=== PATIENT | female | born 1960 | race Hispanic/Latino ===

== ENCOUNTER 2019-02-08 05:30 | Day surgery (SDC) | payer MEDICAID ==
[~2019-02-08] VITALS: Ht 154.9 cm; Wt 71.7 kg
[~2019-02-08 05:30] MED LIST: ESOM40CA PO; HYDR-4064 PO; IRON150C5 PO; SIMV10TA97 PO; TRAZ150T79 PO
[2019-02-08] MEDS ORDERED: SODIUM CHLORIDE 0.9% 1000ML 1,000 ML IV ONE (05:47)
[2019-02-08 06:00] VITALS: BP 139/85
[2019-02-08] MEDS ORDERED: ESOM40CA54 PO (06:14)
[2019-02-08] MEDS ORDERED: PROM25TA7 PO (06:14)
[2019-02-08] MEDS ORDERED: INFL100I INJ (06:14)
[2019-02-08] MEDS ORDERED: DOCU100T PO (06:14)
[2019-02-08] MEDS ORDERED: LIDOCAINE HCL-MPF 2% 5ML VIAL ONE (07:00)
[2019-02-08] MEDS ORDERED: PROPOFOL 10 MG/ML 20ML VIAL IV ONE (07:00)
[2019-02-08] MEDS ORDERED: PHENYLEPHRINE HCL 10 MG/ML 1ML VIAL IV ONE (07:22)
[2019-02-08] MEDS ORDERED: SODIUM CHLORIDE 0.9% 10 ML VIAL ONE (07:22)
[2019-02-08 07:35] VITALS: BP 80/33
[2019-02-08 07:36] VITALS: BP 92/60
[2019-02-08 07:40] VITALS: BP 100/65
[2019-02-08 07:45] VITALS: BP 102/78
[2019-02-08 07:50] VITALS: BP 107/75
== END 2019-02-08 07:59 | disposition home or self-care (01) ==
LOC: DAH 05:30 → ENDO 05:30
PROVIDERS: ATTEND Internal Medicine
DX: K56.699 Other intestinal obstruction unspecified as to partial versus complete obstruction (principal); K51.90 Ulcerative colitis, unspecified, without complications; F41.9 Anxiety disorder, unspecified; E78.5 Hyperlipidemia, unspecified; F32.9 Major depressive disorder, single episode, unspecified; K21.0 Gastro-esophageal reflux disease with esophagitis; Z98.0 Intestinal bypass and anastomosis status; Z79.899 Other long term (current) drug therapy; Z90.710 Acquired absence of both cervix and uterus; Z82.49 Family history of ischemic heart disease and other diseases of the circulatory system; Z83.3 Family history of diabetes mellitus
CPT/HCPCS: 45380; 45386; 88305; A4215 ×2; A4221; A4222; A4223; A4606; A4615; A4663; J2370; J2704; J3490; J7030

== ENCOUNTER 2021-10-11 09:23 | Emergency (ER) | payer MEDICAID ==
[~2021-10-11] VITALS: Ht 154.9 cm; Wt 73.9 kg
[~2021-10-11 09:23] MED LIST changes: +DOCU100T PO; -ESOM40CA PO; +ESOM40CA54 PO; +INFL100I INJ; +PROM25TA7 PO
[2021-10-11 09:49] LABS: BASOPHILS % (AUTO) 0.9 % (0.0-5.0); EOSINOPHILS % (AUTO) 1.6 % (0.0-8.0); LYMPHOCYTES % (AUTO) 45.3 % (21.0-51.0); MEAN CORPUSCULAR HEMOGLOBIN 26.2 pg (27.0-33.0); MEAN CORPUSCULAR HGB CONC 31.2 g/dL (32.0-36.0); MEAN CORPUSCULAR VOLUME 84.1 fL (79-99); MONOCYTES % (AUTO) 6.5 % (3.0-13.0); NEUTROPHILS % (AUTO) 45.5 % (40.0-77.0); PLATELET COUNT (AUTO) 279 K/uL (130-400); RED BLOOD CELL COUNT(AUTO) 5.11 MIL/uL (4.00-5.50); RED CELL DISTRIBUTION WIDTH 13.5 % (11.0-15.5); WHITE BLOOD COUNT (AUTO) 5.5 K/uL (4.8-10.8)
[2021-10-11 09:58] LABS: CREATININE 1.1 mg/dL (0.5-1.5); POTASSIUM 3.8 mmol/L (3.5-5.1)
[2021-10-11 09:59] LABS: INR 0.93 (0.85-1.15)
[2021-10-11 10:00] LABS: PARTIAL THROMBOPLASTIN TIME 25.4 SEC (26.3-35.5)
[2021-10-11 10:04] LABS: ALBUMIN 3.8 g/dL (3.5-5.0); TOTAL PROTEIN, SERUM 7.4 g/dL (6.0-8.3)
[2021-10-11 10:28] VITALS: BP 145/73
[2021-10-11] MEDS ORDERED: CETI10TA57 PO (11:27)
== END 2021-10-11 11:43 | disposition home or self-care (01) ==
LOC: EDH 09:23
DX: R04.0 Epistaxis (principal); J30.2 Other seasonal allergic rhinitis; Z79.899 Other long term (current) drug therapy
CPT/HCPCS: 36415; 80053; 85025; 85610; 85730

== ENCOUNTER 2023-02-04 07:47 | Day surgery (SDC) | payer MEDICAID ==
[~2023-02-04] VITALS: Ht 154.9 cm; Wt 75.7 kg
[2023-02-04] VITALS (11 sets, daily range): BP systolic 106–152; BP diastolic 51–81; PULSE 61–83; RESP 14–20
[~2023-02-04 07:47] MED LIST changes: +0.9%NACL 1000ML 1,000 ML IV ONE; +BUTA1CAP53 PO; +CHOL100046 PO; +COLLAGEN PO; -ESOM40CA54 PO; +FAMO40TA7 PO; -HYDR-4064 PO; +HYDR12.54 PO; -INFL100I INJ; -IRON150C5 PO; +OMEGA PO; +OMEP40CA21 PO; +PROBIOTIC PO; -PROM25TA7 PO; +SIMV-46 PO; -SIMV10TA97 PO; -TRAZ150T79 PO; +VITA-395 PO
[2023-02-04] MEDS ORDERED: CETI10TA57 PO (08:23)
[2023-02-04] MEDS ORDERED: ONDA4TAB10 PO (08:23)
[2023-02-04] MEDS ORDERED: PROPOFOL 10 MG/ML 20ML VIAL IV ONE (10:22)
== END 2023-02-04 11:35 | disposition home or self-care (01) ==
LOC: DAH 07:47 → ENDO 07:47
PROVIDERS: ATTEND Internal Medicine Gastroenterology
DX: R13.10 Dysphagia, unspecified (principal); K21.9 Gastro-esophageal reflux disease without esophagitis; K29.50 Unspecified chronic gastritis without bleeding; K50.90 Crohn's disease, unspecified, without complications; K56.600 Partial intestinal obstruction, unspecified as to cause; K59.00 Constipation, unspecified; K44.9 Diaphragmatic hernia without obstruction or gangrene; E55.9 Vitamin D deficiency, unspecified; F41.9 Anxiety disorder, unspecified; F32.A Depression, unspecified; M81.0 Age-related osteoporosis without current pathological fracture; E78.5 Hyperlipidemia, unspecified; Z86.010 Personal history of colon polyps; Z90.710 Acquired absence of both cervix and uterus
CPT/HCPCS: 43239; 43248; J7030 ×2; J3490; A4620; A4215 ×2; A4223; A7002; A4222; A4221; A4663; A4216; A4606; J2704

== ENCOUNTER 2023-10-04 17:30 | Emergency (ER) | payer MEDICAID ==
[~2023-10-04] VITALS: Ht 154.9 cm; Wt 69.4 kg
[~2023-10-04 17:30] MED LIST changes: -0.9%NACL 1000ML 1,000 ML IV ONE; +CETI10TA57 PO; -HYDR12.54 PO; +ONDA-243 PO
[2023-10-04] MEDS ORDERED: IBUP-2077 PO (18:47)
[2023-10-04 20:35] VITALS: BP 132/68; PULSE 68; RESP 16; O2SAT 99
[2023-10-04] MEDS: HYDROCODONE/ACETAMINOPHEN 5/325 MG TAB PO ONE (20:37)
== END 2023-10-04 20:41 | disposition home or self-care (01) ==
LOC: EDH 17:30
DX: K08.89 Other specified disorders of teeth and supporting structures (principal); D64.9 Anemia, unspecified; K50.90 Crohn's disease, unspecified, without complications; Z79.899 Other long term (current) drug therapy; Z98.890 Other specified postprocedural states

== ENCOUNTER 2024-05-01 22:34 | Emergency (ER) | payer MEDICAID ==
[~2024-05-01] VITALS: Ht 154.9 cm; Wt 70.8 kg
[~2024-05-01 22:34] MED LIST changes: +IBUP-2077 PO
--- NOTE | 2024-05-01 23:42 | HMCIMG ---
CT HEAD/BRAIN W/O CONTRAST HISTORY: Headaches COMPARISON: None TECHNIQUE: Multiple sequential axial images of the head were obtained from the base of the skull through vertex. Patient was not given contrast through intravenous route. FINDINGS: The ventricles and extraventricular CSF spaces are nondilated for patient's age. There is no midline shift, mass effect or herniation. No acute intracranial bleed is seen. Visualized portion of the paranasal sinuses are grossly within normal limits. IMPRESSION: 1. No acute intracranial bleed is seen. CT was performed with one or more following dose reduction techniques: automated exposure control, adjustment of the mA and kv according to patient's size, or use of a iterative reconstruction technique.
[2024-05-02 00:10] LABS: BASOPHILS # (AUTO) 0.06 K/uL (0.00-0.20); BASOPHILS % (AUTO) 0.7 % (0.0-5.0); EOSINOPHILS # (AUTO) 0.16 K/uL (0.00-0.70); EOSINOPHILS % (AUTO) 1.9 % (0.0-8.0); HEMATOCRIT 40.5 % (36-48); IMMATURE GRANULOCYTE ABSOLUTE 0.01 K/uL (0-1); LYMPHOCYTES # (AUTO) 3.2 K/uL (1.0-4.8); LYMPHOCYTES % (AUTO) 38.4 % (21.0-51.0); MEAN CORPUSCULAR HEMOGLOBIN 25.4 pg (27.0-33.0); MEAN CORPUSCULAR HGB CONC 31.4 g/dL (32.0-36.0); MONOCYTES # (AUTO) 0.5 K/uL (0.1-1.0); MONOCYTES % (AUTO) 5.5 % (3.0-13.0); NEUTROPHILS # (AUTO) 4.5 K/uL (1.8-7.7); NEUTROPHILS % (AUTO) 53.4 % (40.0-77.0); PLATELET COUNT (AUTO) 325 K/uL (130-400); RED CELL DISTRIBUTION WIDTH 14.3 % (11.0-15.5); WHITE BLOOD COUNT (AUTO) 8.4 K/uL (4.8-10.8)
[2024-05-02 00:31] LABS: CREATININE 0.9 mg/dL (0.5-1.0); POTASSIUM 3.1 mmol/L (3.5-5.1)
[2024-05-02] MEDS: metoCLOPRAmide 10 MG/2 ML VIAL IVP ONE (01:29)
[2024-05-02] MEDS: DiphenhydrAMINE HCL 50 MG/ML VIAL IV ONE (01:30)
[2024-05-02] MEDS: ketOROlac 15MG/ML VIAL (15MG/ML) IV ONE (01:30)
[2024-05-02] MEDS: 0.9%NACL 1000ML 1,000 ML IV ONE (01:31)
[2024-05-02] MEDS: acetaMINOPHEN 500 MG TABLET PO ONE (01:31)
[2024-05-02 02:10] VITALS: BP 154/80; PULSE 16; RESP 18; TEMP 98.4; O2SAT 98
--- NOTE | 2024-05-02 02:26 | ERN ---
ED Note History of Present Illness Stated Complaint: HEADACHES Chief Complaint: Headache Time Seen by MD: 23:13 Time Seen by Midlevel: 23:13 Dictation: The patient is a 64-year-old with a history of Crohn's disease who presents to the emergency department with frontal headache onset 3-4 days ago. Patient denies any dizziness, denies any nausea or vomiting, denies any trauma. Patient reports that movement makes pain worse. Allergies: Coded Allergies: No Known Drug Allergies (Unverified Allergy, Unknown, 11/27/13) Home Meds Active Scripts Ibuprofen (Ibuprofen 800 mg Tab) 800 Mg Tab, 800 MG PO Q8H PRN for fever or pain, #20 TAB 0 Refills Prov:SPENSER AYALA MD 10/04/23 Reported Medications Cetirizine HCl (Cetirizine HCl) 10 Mg Tablet, 10 MG PO DAILY, TAB 02/04/23 Ondansetron (Ondansetron Odt) 4 Mg Tab.rapdis, 4 MG PO AD, TAB 02/04/23 Simvastatin (Simvastatin) 40 Mg Tablet, 40 MG PO HS, TAB 02/03/23 Famotidine (Famotidine) 40 Mg Tablet, 40 MG PO DAILY, TAB 02/03/23 Omeprazole (Omeprazole) 40 Mg Capsule.dr, 40 MG PO DAILY, CAP 02/03/23 [Probiotic +50] No Conflict Check, 1 CAP PO DAILY 02/03/23 Vitamin E (Dl,Tocopheryl Acet) (Vitamin E) 180 Mg (400 Unit) Capsule, 180 MG PO DAILY, CAP 02/03/23 Cholecalciferol (Vitamin D3) (Vitamin D3) 25 Mcg (1000 Unit) Capsule, 25 MCG PO DAILY, CAP 02/03/23 [Presho] No Conflict Check, 500 MG PO DAILY 02/03/23 [Collagen] No Conflict Check, 2.5 G PO DAILY 02/03/23 Butalb/Acetaminophen/Caffeine (Vsdqwt-Giiudbgy-Cxif 50-300-40) 50 Mg-300 Mg-40 Mg Capsule, 1 EACH PO [id number] PRN for HEADACHE, CAP 02/03/23 Docusate Sodium (Docusate Sodium) 100 Mg Tablet, 100 MG PO DAILY, TAB 02/08/19 Past Medical History Past Medical History: Hypertension, Other Additional Past Medical Hx: HX OF CROHN'S DISEASE Surgical History: Hysterectomy, Other Surgical History Other: HX OF COLON RESECTION History: Not Applicable RN Note Reviewed/Agreed w/PFSH: Yes Review of System Dictation Constitutional: Negative for fever,chills, and weight loss Eyes: Negative for injury, pain,redness, and discharge ENT: Negative for injury,pain or swelling Cardiovascular: Negative for chest pain, palpitations, and edema Respiratory: Negative for shortness of breath, cough, and wheezing, Abdomen/GI: Negative for abdominal pain, nausea, vomiting, diarrhea, and constipation Back: Negative for injury and pain : Negative for injury, bleeding and discharge MS/Extremity: Negative for injury and deformity Skin: Negative for rash, and discoloration Neuro: Negative for weakness, numbness, tingling, and seizure positive for headache, Psych: Negative for suicide ideation, homicidal ideation, and hallucinations Initial Vital Sign VS Vital Signs Date Time Temp Pulse Resp B/P (MAP) Pulse Ox O2 Delivery O2 Flow Rate FiO2 05/01/24 23:00 98.1 75 20 192/93 97 Room Air 05/02/24 02:10 0 21 Physical Exam Dictation Vital Signs reviewed General Appearance: Alert, oriented x 3, no acute distress, well developed, nourished. Head and Face: non-traumatic. Eyes: PERRL, pink conjunctivas, eyelid no trauma, anterior chamber with arcus senilis. Ears: Pinnas intact and no signs of trauma or erythema ear canals clear and no discharge TM no erythema Nose: No discharge, no bleeding. Oropharynx: Mouth normal, tongue pink. pharynx clear,no erythema, tonsils no exudates, no abscesses noted, mucous membrane moist Neck: Supple, non-tender, no thyromegaly, no masses, no JVD, no bruits Breast:Deferred Chest:No tenderness, no crepitus, no paradoxical movement, no retractions Lungs:Clear, well-ventilated, symmetric, no rales, no wheezing, no rhonchi, no stridor, good breath sounds bilaterally Heart: Regular rate, regular rhythm, no murmur, no gallops Vascular: no peripheral edema, Abdomen: Soft, positive bowel sounds, nondistended, no guarding, nontender, no rebound, no masses no hepatomegaly, no splenomegaly, no Claros's sign, no hernias. Rectal: Deferred Genital: Deferred Neurological: Normal speech, motor function intact, sensory function intact , upper extremities equal and strength, lower extremities equal and strength Musculoskeletal: Neck nontender, full range of motion, back nontender, full range of motion, Extremities: nontender, full range of motion Skin: Color pink, dry, no turgor, no rash, no lacerations, no abrasions, no contusions. Lymphatic: Deferred Results (Laboratory/Radiology) Laboratory/Radiology Laboratory Tests Test 05/01/24 23:42 White Blood Count 8.4 K/uL (4.8-10.8) Red Blood Count 5.00 MIL/uL (4.00-5.50) Hemoglobin 12.7 g/dL (12.0-16.0) Hematocrit 40.5 % (36-48) Mean Corpuscular Volume 81.0 fL (79-99) Mean Corpuscular Hemoglobin 25.4 pg (27.0-33.0) L Mean Corpuscular Hemoglobin Concent 31.4 g/dL (32.0-36.0) L Red Cell Distribution Width 14.3 % (11.0-15.5) Platelet Count 325 K/uL (130-400) Mean Platelet Volume 11.0 fL (7.5-10.5) H Immature Granulocyte % (Auto) 0.1 % (0-1) Neutrophils (%) (Auto) 53.4 % (40.0-77.0) Lymphocytes (%) (Auto) 38.4 % (21.0-51.0) Monocytes (%) (Auto) 5.5 % (3.0-13.0) Eosinophils (%) (Auto) 1.9 % (0.0-8.0) Basophils (%) (Auto) 0.7 % (0.0-5.0) Neutrophils # (Auto) 4.5 K/uL (1.8-7.7) Lymphocytes # (Auto) 3.2 K/uL (1.0-4.8) Monocytes # (Auto) 0.5 K/uL (0.1-1.0) Eosinophils # (Auto) 0.16 K/uL (0.00-0.70) Basophils # (Auto) 0.06 K/uL (0.00-0.20) Absolute Immature Granulocyte (auto 0.01 K/uL (0-1) Nucleated Red Blood Cells 0.0 % (0.0-0.19) Sodium Level 141 mmol/L (136-145) Potassium Level 3.1 mmol/L (3.5-5.1) L Chloride Level 105 mmol/L (101-111) Carbon Dioxide Level 28 mmol/L (21-32) Blood Urea Nitrogen 20 mg/dL (7-18) H Creatinine 0.9 mg/dL (0.5-1.0) Glomerular Filtration Rate Calc 72 mL/min (>90) Random Glucose 143 mg/dL (70-105) H Total Calcium 9.9 mg/dL (8.5-10.1) REASON: headache ORDERING PHYSICIAN: KIMBERLY AYALA PROCEDURE: HEAD WO - CT HEAD/BRAIN W/O CONTRAST CT HEAD/BRAIN W/O CONTRAST HISTORY: Headaches COMPARISON: None TECHNIQUE: Multiple sequential axial images of the head were obtained from the base of the skull through vertex. Patient was not given contrast through intravenous route. FINDINGS: The ventricles and extraventricular CSF spaces are nondilated for patient's age. There is no midline shift, mass effect or herniation. No acute intracranial bleed is seen. Visualized portion of the paranasal sinuses are grossly within normal limits. IMPRESSION: 1. No acute intracranial bleed is seen. CT was performed with one or more following dose reduction techniques: automated exposure control, adjustment of the mA and kv according to patient's size, or use of a iterative reconstruction technique. Labs Reviewed?: Yes ED Course ED Course Orders Procedure Category Date Status Time Cbc With Differential LAB 05/01/24 Complete 23:18 Basic Metabolic Panel LAB 05/01/24 Complete 23:18 Ct Head/Brain W/O CT 05/01/24 Resulted Contrast 23:18 Acetaminophen 500mg PHA 05/01/24 Complete Tab (Tylenol 500mg T 23:30 0.9%Nacl 1000ml (Ns PHA 05/01/24 Complete 1000ml) 23:30 Metoclopramide 10 PHA 05/01/24 Complete Mg/2 Ml Vial (Reglan 1 23:30 Diphenhydramine Hcl PHA 05/01/24 Complete (Benadryl Inj) 23:30 Ketorolac PHA 05/02/24 Complete Tromethamine 15mg/Ml 01:30 Current Medications Medications (Trade) Dose Ordered Sig/Nader Route PRN Reason Start Time Stop Time Status Last Admin Dose Admin Acetaminophen (TYLenol 500MG TAB) 1,000 mg ONCE ONCE PO 05/01/24 23:30 05/01/24 23:31 DC 05/02/24 01:31 Diphenhydramine HCl (BENAdryl INJ) 25 mg ONCE ONCE IV 05/01/24 23:30 05/01/24 23:31 DC 05/02/24 01:30 Ketorolac Tromethamine (toRADol) 15 mg ONCE ONCE IV 05/02/24 01:30 05/02/24 01:31 DC 05/02/24 01:30 Metoclopramide HCl (regLAN 10MG IV) 10 mg ONCE ONCE IVP 05/01/24 23:30 05/01/24 23:31 DC 05/02/24 01:29 Sodium Chloride 1,000 ml @ 0 mls/hr ONCE ONCE IV 05/01/24 23:30 05/01/24 23:31 DC 05/02/24 01:31 Vital Signs Date Time Temp Pulse Resp B/P (MAP) Pulse Ox O2 Delivery O2 Flow Rate FiO2 05/02/24 02:10 98.4 16 18 154/80 98 Room Air* 0 21 05/01/24 23:00 98.1 75 20 192/93 97 Room Air Medical Decision Making MDM The patient is a 64-year-old with a history of Crohn's disease who presents to the emergency department with frontal headache onset 3-4 days ago. Patient denies any dizziness, denies any nausea or vomiting, denies any trauma. Patient reports that movement makes pain worse. CBC showed no leukocytosis, no anemia, chemistry showed mild hypokalemia, CT abdomen showed no acute pathology. Patient reports improving in pain. Continues neurologically intact. We will be discharged to follow up with PCP. Differential diagnosis: Intracerebral hemorrhage, dehydration, tension headache Need for hospitalization: Patient does not meet criteria for hospitalization. There are no social concerns with this patient. DX & DISP Disposition: Discharge Departure Impression: Primary Impression: Headache Additional Impression: Hypokalemia Condition: Stable Additional Instructions: Please follow up with your primary doctor in 1-2 days. If symptoms worsen please return to ER. FOLLOW-UP WITH PRIMARY CARE PROVIDER IN 1 TO 2 DAYS. TAKE MEDICATIONS DIRECTED HERE IN THE EMERGENCY ROOM. OKAY TO CONTINUE HOME MEDICATIONS UNLESS OTHERWISE DISCUSSED DURING YOUR VISIT IN THE EMERGENCY ROOM TODAY. RETURN TO YOUR NEAREST EMERGENCY ROOM IF SYMPTOMS WORSEN OR IF THERE IS NO IMPROVEMENT. CALL 911 IF YOU NEED IMMEDIATE ASSISTANCE. TAKE TYLENOL OR MOTRIN [id number] NEEDED AND IF NO CONTRAINDICATIONS ARE PRESENT. INCREASE ORAL HYDRATION. A WOUND CULTURE OR URINE CULTURE WAS ORDERED HERE IN THE EMERGENCY ROOM DEPARTMENT PLEASE FOLLOW-UP WITH PRIMARY CARE PROVIDER AND ADVISE THEM TO GET REPEAT PORTS FROM OUR FACILITY. IF YOU HAD ANY DEBORA WRAP/SPLINTS THAT WERE APPLIED HERE, PLEASE DO NOT REMOVE THEM UNTIL YOU SEE YOUR PRIMARY CARE OR SPECIALTY. Referrals: TIM DISLA DO (PCP) Time of Disposition: 02:25 I have reviewed the case, and I agree with, Diagnosis and Plan KIMBERLY AYALA May 02, 2024 02:26
[2024-05-02] MEDS: PoTASSium BIcarbonate/CIT AC 25 MEQ TABLET.EFF PO ONE (02:33)
== END 2024-05-02 02:52 | disposition home or self-care (01) ==
LOC: EDH 22:34
DX: R51.9 Headache, unspecified (principal); E87.6 Hypokalemia; I10 Essential (primary) hypertension; Z79.899 Other long term (current) drug therapy; Z90.49 Acquired absence of other specified parts of digestive tract; Z90.710 Acquired absence of both cervix and uterus
CPT/HCPCS: 99285; 70450; 80048; 85025; 36415; 96374; 96375; J1885; J1200; J7030; J2765

== ENCOUNTER 2024-09-22 18:19 | Emergency (ER) | payer MEDICAID ==
[~2024-09-22] VITALS: Ht 154.9 cm; Wt 70.8 kg
[2024-09-22 19:01] LABS: IMMATURE GRANULOCYTE ABSOLUTE 0.01 K/uL (0-1); NUCLEATED RED BLOOD CELLS 0.0 % (0.0-0.19); PLATELET COUNT (AUTO) 283 K/uL (130-400); RED BLOOD CELL COUNT(AUTO) 5.19 MIL/uL (4.00-5.50); RED CELL DISTRIBUTION WIDTH 19.9 % (11.0-15.5); WHITE BLOOD COUNT (AUTO) 6.3 K/uL (4.8-10.8)
--- NOTE | 2024-09-22 19:07 | ERN ---
General Chief Complaint: Multiple Complaints Stated Complaint: SOB W/ EXERTION Time Seen by MD: 18:26 Source: patient History of Present Illness Initial Comments 64-year-old female whose only past medical history is hypertension comes in with a week long history of dyspnea on exertion and lightheadedness as well as a feeling of weakness shortness of breath and difficulty swallowing. The lightheadedness occurs when she is walking. The difficulty in swallowing occurs at rest when she feels like she has to consciously swallow her saliva as it tends to accumulate in the back of her mouth. She can drink water but she needs to drink it slowly she can eat solid foods. In addition patient feels like she has some shortness of breath as well. No chest pain Allergies: Coded Allergies: No Known Drug Allergies (Unverified Allergy, Unknown, 11/27/13) Home Meds Active Scripts Ibuprofen (Ibuprofen 800 mg Tab) 800 Mg Tab, 800 MG PO Q8H PRN for fever or shay n, #20 TAB 0 Refills Prov:SPENSER AYALA MD 10/04/23 Reported Medications Cetirizine HCl (Cetirizine HCl) 10 Mg Tablet, 10 MG PO DAILY, TAB 02/04/23 Ondansetron (Ondansetron Odt) 4 Mg Tab.rapdis, 4 MG PO AD, TAB 02/04/23 Simvastatin (Simvastatin) 40 Mg Tablet, 40 MG PO HS, TAB 02/03/23 Famotidine (Famotidine) 40 Mg Tablet, 40 MG PO DAILY, TAB 02/03/23 Omeprazole (Omeprazole) 40 Mg Capsule.dr, 40 MG PO DAILY, CAP 02/03/23 [Probiotic +50] No Conflict Check, 1 CAP PO DAILY 02/03/23 Vitamin E (Dl,Tocopheryl Acet) (Vitamin E) 180 Mg (400 Unit) Capsule, 180 MG PO DAILY, CAP 02/03/23 Cholecalciferol (Vitamin D3) (Vitamin D3) 25 Mcg (1000 Unit) Capsule, 25 MCG PO DAILY, CAP 02/03/23 [[place]] No Conflict Check, 500 MG PO DAILY 02/03/23 [Collagen] No Conflict Check, 2.5 G PO DAILY 02/03/23 Butalb/Acetaminophen/Caffeine (Ndxvxf-Rytdfbqc-Kcdi 50-300-40) 50 Mg-300 Mg-40 Mg Capsule, 1 EACH PO [id number] PRN for HEADACHE, CAP 02/03/23 Docusate Sodium (Docusate Sodium) 100 Mg Tablet, 100 MG PO DAILY, TAB 02/08/19 Past Medical History Past Medical History: Hypertension, Other Medical History Other: HX OF CROHN'S DISEASE Past Surgical History: Hysterectomy, Other Surgical History Other: HX OF COLON RESECTION Female( History) History: Not Applicable Constitutional: (-) chills, (-) diaphoresis, (-) fever, (-) malaise, (-) weakness, (-) other documentation EENTM: (-) eye pain, (-) blurred vision, (-) tearing, (-) double vision, (-) ear pain, (-) ear discharge, (-) nose pain, (-) nose congestion, (-) throat pain, (-) Throat swelling, (-) mouth pain, (-) tooth pain, (-) mouth swelling, (-) other documentation Respiratory: (-) cough, (-) orthopnea, (-) short of breath, (-) stridor, (-) wheezing, (-) other documentation Cardiovascular: (-) chest pain, (-) edema, (-) palpitations, (-) syncope, (-) dyspnea on exertion, (-) other documentation Gastrointestinal/Abdominal: (-) nausea, (-) vomiting, (-) diarrhea, (-) abdominal pain, (-) abdominal distention, (-) constipation, (-) rectal bleeding, (-) dark stool/melena, (-) other documentation Genitourinary: (-) vaginal discharge, (-) vaginal bleeding, (-) dysuria, (-) frequency, (-) hematuria, (-) pain, (-) other documentation Musculoskeletal: (-) Neck pain, (-) back pain, (-) Flank Pain, (-) joint pain, (-) joint swelling, (-) muscle pain, (-) muscle stiffness, (-) gout, (-) other documentation Skin: (-) laceration, (-) contusion, (-) abrasion, (-) abscess, (-) rash, (-) change in color, (-) change in hair, (-) change in nails, (-) diaphoresis, (-) dryness, (-) other documentation Physical Exam General Appearance: (+) no apparent distress Orientation: (+) alert Head/Face Trauma: No Eye: bilateral eye normal inspection, bilateral eye PERRL, bilateral eye EOMI Ear, Nose, Throat: (+) hearing grossly normal, (+) normal ENT inspection, (+) moist mucous membraine Neck: (+) normal inspection, (+) supple, (+) full range of motion, (+) no JVD Respiratory: (+) chest non-tender, (+) lungs clear, (+) well ventilated Heart: (+) regular, (+) no gallop Vascular: (+) no edema, (+) normal peripheral pulse, (+) no JVD Vascular Comment Radial pulses do feel a little thready. Gastrointestinal: (+) non-tender, (+) bowel sound present Extremities: (+) normal range of motion, (+) non-tender Skin: (+) normal color, (+) warm/dry Skin Comment Patient does have tenting of her skin on the dorsal surface of her bilateral hands Results Laboratory and Microbiology Lab and Micro Result Laboratory Tests Test 09/22/24 18:46 09/22/24 19:53 09/22/24 23:15 White Blood Count 6.3 K/uL (4.8-10.8) Red Blood Count 5.19 MIL/uL (4.00-5.50) Hemoglobin 12.9 g/dL (12.0-16.0) Hematocrit 42.1 % (36-48) Mean Corpuscular Volume 81.1 fL (79-99) Mean Corpuscular Hemoglobin 24.9 pg (27.0-33.0) L Mean Corpuscular Hemoglobin Concent 30.6 g/dL (32.0-36.0) L Red Cell Distribution Width 19.9 % (11.0-15.5) H Platelet Count 283 K/uL (130-400) Mean Platelet Volume 10.7 fL (7.5-10.5) H Immature Granulocyte % (Auto) 0.2 % (0-1) Neutrophils (%) (Auto) 55.9 % (40.0-77.0) Lymphocytes (%) (Auto) 36.2 % (21.0-51.0) Monocytes (%) (Auto) 5.3 % (3.0-13.0) Eosinophils (%) (Auto) 1.8 % (0.0-8.0) Basophils (%) (Auto) 0.6 % (0.0-5.0) Neutrophils # (Auto) 3.5 K/uL (1.8-7.7) Lymphocytes # (Auto) 2.3 K/uL (1.0-4.8) Monocytes # (Auto) 0.3 K/uL (0.1-1.0) Eosinophils # (Auto) 0.11 K/uL (0.00-0.70) Basophils # (Auto) 0.04 K/uL (0.00-0.20) Absolute Immature Granulocyte (auto 0.01 K/uL (0-1) Nucleated Red Blood Cells 0.0 % (0.0-0.19) Red Blood Cell Morphology ANISO 1+ Sodium Level 139 mmol/L (136-145) Potassium Level 4.0 mmol/L (3.5-5.1) Chloride Level 101 mmol/L (101-111) Carbon Dioxide Level 26 mmol/L (21-32) Blood Urea Nitrogen 17 mg/dL (7-18) Creatinine 0.7 mg/dL (0.5-1.0) Glomerular Filtration Rate Calc 97 mL/min (>90) Random Glucose 93 mg/dL (70-105) Total Calcium 9.4 mg/dL (8.5-10.1) Troponin I High Sensitivity 4 ng/L (4-50) Urine Color COLORLESS (YELLOW) Urine Appearance CLOUDY (CLEAR) H Urine pH 6.0 (5.0-8.0) Urine Specific Strong 1.002 (1.001-1.031) Urine Protein NEGATIVE mg/dL (NEGATIVE) Urine Glucose (UA) NEGATIVE mg/dL (NEGATIVE) Urine Ketones NEGATIVE mg/dL (NEGATIVE) Urine Occult Blood MODERATE (NEGATIVE) H Urine Nitrate NEGATIVE (NEGATIVE) Urine Bilirubin NEGATIVE mg/dL (NEGATIVE) Urine Urobilinogen 0.2 mg/dL (0.2-1.0) Urine Leukocyte Esterase 500 David/uL (NEGATIVE) H Urine RBC None /HPF (0-1) Urine WBC 11-25 /HPF (0-1) H Urine Squamous Epithelial Cells RARE /HPF (0-2) Urine Bacteria None /HPF (None Seen) Influenza Type A Antigen Negative For Type A Influenza Type B Antigen Negative For Type B SARS-CoV-2 Antigen (Rapid) PRESUMPTIVE NEGATIVE Group A Streptococcus Rapid negative (NEGATIVE) MDM MDM: Differential diagnosis: Dehydration CHF myocardial infarction pulmonary infiltrates pneumonia cricopharyngeal hypertrophy bronchitis Rationale: Tests considered and ordered secondary to shared decision making include: Previous outside records reviewed: Old ER visits. Risk of complication and/or morbidity or mortality of patient management: None Medications-Per medication reconciliation Need for hospitalization: Patient does meet criteria for hospitalization. Need for emergency major/minor surgery: No There are no social concerns with this patient. Prescription drug management Prescriptions will include symptomatic care Patient's prior external medical records from other ER visits were reviewed by me as indicated. Prior testing and results from previous visits were reviewed. Prior tests were taken into account with medical decision making and resource utilization, independent historian/historians were used to obtain complete medical history. I independently interpreted the test that were performed, results were reviewed by me and considered findings on radiology if ordered. Patient's chemistry panel is normal patient's CBC may show signs of iron- deficiency. Patient does have a UTI. I did bolus the patient a L of fluid and she no longer feels lightheaded. Her nasal swabs are negative for COVID strep or influenza. CT scan of her neck region did not show any inflammation or masses that could explain the patient's persistent cough. 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 I described to her the exercises that when can do to mitigate the symptoms of cricopharyngeal hypertrophy. I will recommend that she follow-up with a GI doctor and an ENT to sort this out. In the meantime I wrote for Roshni Hardin for symptoms. She does have a urinary tract infection I gave the patient g of Ancef and I will give her a prescription for Ancef. While the patient was in the hospital she started complaining of a severe headache and neck pain. Toradol did not help. I am giving her some intramuscular Kenalog and Norflex. ED Course Orders Procedure Category Date Status Time Lactated Ringers PHA 09/22/24 Complete 1000ml (Lactated 18:35 12 Lead Ekg Tracing- EKG 09/22/24 Complete Technical 18:35 Basic Metabolic Panel LAB 09/22/24 Complete 18:35 Cbc With Differential LAB 09/22/24 Complete 18:35 Urinalysis Profile LAB 09/22/24 Complete 18:35 Troponin I High LAB 09/22/24 Complete Sensitivity 18:[address] Ct Neck Soft Tiss CT 09/22/24 Resulted W/Contrast 18:35 Ketorolac PHA 09/22/24 Complete Tromethamine 30mg/Ml 20:00 Iohexol (Omnipaque) PHA 09/22/24 Complete 20:03 Culture Urine PRINCE 09/22/24 In Process 20:13 Covid19 (Sars Antigen LAB 09/22/24 Complete Rapid) 23:01 Influenza Type A & B, LAB 09/22/24 Complete Rapid 23:01 Rapid (Group A Strep) LAB 09/22/24 Complete 23:01 Cefazolin Sodium 1 Gm PHA 09/22/24 Complete Vial (Ancef 1 Gm V 23:03 Orphenadrine Citrate PHA 09/23/24 Verified (Norflex) 00:00 Triamcinolone Acet PHA 09/23/24 Verified 40mg/Ml 1ml (Kenalog 00:00 Current Medications Medications (Trade) Dose Ordered Sig/Nader Route PRN Reason Start Time Stop Time Status Last Admin Dose Admin Cefazolin Sodium (ANCEF 1 gm vial) 1 gm ONCE STAT IVP 09/22/24 23:03 09/22/24 23:05 DC 09/22/24 23:41 Iohexol (Omnipaque) 50 ml STK-MED ONCE IV 09/22/24 20:03 09/22/24 20:04 DC Ketorolac Tromethamine (toRADol) 30 mg ONCE ONCE IVP 09/22/24 20:00 09/22/24 20:01 DC 09/22/24 20:27 Lactated Ringer's (Lactated Ringers 1000ml) 1,000 ml BOLUS STAT IV 09/22/24 18:35 09/22/24 19:44 DC 09/22/24 19:47 Vital Signs Date Time Temp Pulse Resp B/P (MAP) Pulse Ox O2 Delivery O2 Flow Rate FiO2 09/22/24 21:00 98.4 72 19 167/82 98 Room Air* 0 21 09/22/24 19:00 78 18 158/79 98 Room Air* 0 21 09/22/24 18:21 98.6 80 16 196/89 97 Room Air 0 DX & DISP Disposition: Discharge Departure Impression: Primary Impression: Urinary tract infection Additional Impressions: Persistent cough, Headache Condition: Stable Scripts Benzonatate (Benzonatate) 200 Mg Capsule 200 MG PO BID PRN for cough for 10 Days, #20 CAP Prov: ERNIE GARVEY MD 09/23/24 Cephalexin Monohydrate (Keflex) 500 Mg Cap 500 MG PO QID for 7 Days, #28 CAP Prov: ERNIE GARVEY MD 09/23/24 Additional Instructions: You have a broad array of symptoms some of which I think are due to dehydration. I have given you some fluids and some pain medications and muscle relaxants to help with that. You have a urinary tract infection I have given you a g of antibiotics for that and a prescription for the urinary tract infection. You also have a persistent cough the cause of which is unclear to me. 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 I recommend you follow-up with your GI doctor and also an ENT physician. You may need a barium swallow to diagnose this. Referrals: TIM DISLA DO (PCP) ERNIE GARVEY MD Sep 22, 2024 19:07
[2024-09-22 19:09] LABS: CREATININE 0.7 mg/dL (0.5-1.0); GLOMERULAR FILTR. RATE CALC 97.0 mL/min (>90); GLUCOSE,RANDOM 93.0 mg/dL (70-105); SODIUM SERUM 139.0 mmol/L (136-145); UREA NITROGEN, BLOOD 17.0 mg/dL (7-18)
--- NOTE | 2024-09-22 19:16 | EKG ---
[facility] Test Date: 2024-09-22 Test Time: 19:13:09 Pat Name: PEDRO ARRIOLA Department: ED Room: Gender: F Netting Weaver: [id number] : 1960 Requested By: ERNIE GARVEY Order Number: [id number] Reading MD: Ken George Measurements Intervals [place] Rate: 74 P: 47 OH: 166 QRS: 4 QRSD: 100 T: 28 QT: 380 QTc: 423 Interpretive Statements Sinus rhythm Probable anteroseptal infarct, old Compared to ECG 10/15/2016 03:54:39 Myocardial infarct finding now present Prolonged QT interval no longer present Electronically Signed On 09-23-2024 10:52:45 CDT by Ken George Please click the below link to view image of tracing.
[2024-09-22] MEDS: LACTATED RINGERS 1000ML IV STA (19:47)
[2024-09-22 20:02] LABS: APPEARANCE,URINE CLOUDY (CLEAR); GLUCOSE, URINE (UA) NEGATIVE (NEGATIVE); LEUKOCYTE ESTERASE ,URINE 500 Leu/uL (NEGATIVE); NITRATE,URINE NEGATIVE (NEGATIVE); OCCULT BLOOD,URINE MODERATE (NEGATIVE)
[2024-09-22] MEDS ORDERED: IOHEXOL-350 50ML VIAL IV ONE (20:03)
[2024-09-22 20:13] LABS: ADD UA MICROSCOPIC YES
[2024-09-22 20:18] LABS: SQUAMOUS EPITHELIAL CELL,UR RARE /HPF (0-2)
--- NOTE | 2024-09-22 21:39 | HMCIMG ---
EXAM: CT Neck With IV Contrast CLINICAL HISTORY: Cricopharyngeal hypertrophy. TECHNIQUE: Contiguous axial images were obtained through the neck. Reconstructed imaging. Reformatted/MPR images were performed. CT scan is done according to ALARA (As Low as Reasonably Achievable). CONTRAST: Yes. COMPARISON: None. FINDINGS: Included intracranial substances, orbits, and paranasal sinuses are grossly unremarkable. The nasopharynx, oropharynx, oral cavity, hypopharynx, and larynx are grossly unremarkable. Unremarkable epiglottis, vallecula, aryepiglottic folds, pyriform sinuses, and true vocal cords. The hyoid bone, thyroid, cricoid, and arytenoid cartilages are unremarkable. Parotid, submandibular, and thyroid glands are grossly unremarkable. No pathologically enlarged lymph nodes. Visualized, included lung apices are grossly clear. No acute osseous abnormality. Loss of cervical lordosis. Mild degenerative changes at C5-C6 and C6-7, and disc osteophyte complex bulge at C6-C7 level. IMPRESSION: No abnormal soft tissue mass in the suprahyoid and infrahyoid neck spaces. No enlarged cervical lymph nodes. The cricopharynx and the proximal esophagus appear unremarkable. Bilateral aryepiglottic fold, pyriform sinuses, and post cricoid region appear grossly unremarkable. /[place]
[2024-09-22 23:31] LABS: RAPID GROUP A STREP negative (NEGATIVE)
[2024-09-22 23:42] LABS: COVID19 (SARS ANTIGEN RAPID) PRESUMPTIVE NEGATIVE (NEGATIVE); INFLUENZA TYPE A Negative For Type A (NEGATIVE); INFLUENZA TYPE B Negative For Type B (NEGATIVE)
[2024-09-23] MEDS ORDERED: CEPH500B PO (00:04)
[2024-09-23] MEDS ORDERED: BENZ200C53 PO (00:05)
[2024-09-23] MEDS: ORPHENADRINE 60MG/2ML IM ONE (00:12)
[2024-09-23] MEDS: TRIAMCINOLONE ACETONIDE 40 MG/ML 1ML VIAL IM ONE (00:27)
[2024-09-23 00:32] VITALS: BP 178/77; PULSE 67; RESP 18; TEMP 98.5; O2SAT 98
== END 2024-09-23 00:44 | disposition home or self-care (01) ==
LOC: EDH 18:19
DX: N39.0 Urinary tract infection, site not specified (principal); R51.9 Headache, unspecified; I10 Essential (primary) hypertension; Z79.899 Other long term (current) drug therapy; Z90.49 Acquired absence of other specified parts of digestive tract; Z90.710 Acquired absence of both cervix and uterus; Z20.822 Contact with and (suspected) exposure to COVID-19
CPT/HCPCS: 99285; 96365; 70491; 96375; 87426; 84484; 80048; 85025; 87086; 87880; 87804 ×2; 81001; 36415; 93005; 96372 ×2; J1885; J7120; J0690; Q9967; J3301; J2360

== ENCOUNTER 2024-11-12 22:18 | Emergency (ER) | payer MEDICAID ==
[~2024-11-12] VITALS: Ht 154.9 cm; Wt 69.4 kg
[~2024-11-12 22:18] MED LIST changes: +BENZ200C53 PO; +CEPH500B PO
[2024-11-12 22:19] VITALS: TEMP 97.9
--- NOTE | 2024-11-12 22:36 | ERN ---
ED Note History of Present Illness Stated Complaint: RASH Chief Complaint: Skin Rash/Abscess Time Seen by MD: 22:23 Dictation: This is a 64-year-old female who presented to the emergency room complaints of rash which started on 11/09/2024 along the anterior neck area. She stated that it is very itchy she tried to apply cream and aloe with no significant improvement. No history of any stridor tongue swelling difficulty swallowing or breathing. No other areas of rash involved. No fever chills or rigors. She denied changing any creams or lotions. No history of any recent antibiotics. No change in her food habits. She also denied having any cosmetic procedures. Patient has been itching and scratching the rash under the chin and anterior neck Temperature 97.9 pulse 76 respirations 18 blood pressure 211/92 with a pulse oximetry of 98% on room air Patient has a history of Crohn's disease status post colon resection, hypertension however patient has stopped medications for her blood pressure many years ago as she did not like the way made her feel Allergies: Coded Allergies: No Known Drug Allergies (Unverified Allergy, Unknown, 11/27/13) Home Meds Active Scripts Hydroxyzine HCl (Atarax) 25 Mg Tab, 1 CAP PO TID for itching for 10 Days, #30 CAP 0 Refills Prov:ROMIE FELICIANO MD 11/12/24 Prednisone (Prednisone) 20 Mg Tablet, 1 TAB PO BID for 5 Days, #10 TAB 0 Refills Prov:ROMIE FELICIANO MD 11/12/24 Benzonatate (Benzonatate) 200 Mg Capsule, 200 MG PO BID PRN for cough for 10 Days, #20 CAP Prov:ERNIE GARVEY MD 09/23/24 Cephalexin Monohydrate (Keflex) 500 Mg Cap, 500 MG PO QID for 7 Days, #28 CAP Prov:ERNIE GARVEY MD 09/23/24 Ibuprofen (Ibuprofen 800 mg Tab) 800 Mg Tab, 800 MG PO Q8H PRN for fever or pain, #20 TAB 0 Refills Prov:SPENSER AYALA MD 10/04/23 Reported Medications Cetirizine HCl (Cetirizine HCl) 10 Mg Tablet, 10 MG PO DAILY, TAB 02/04/23 Ondansetron (Ondansetron Odt) 4 Mg Tab.rapdis, 4 MG PO AD, TAB 02/04/23 Simvastatin (Simvastatin) 40 Mg Tablet, 40 MG PO HS, TAB 02/03/23 Famotidine (Famotidine) 40 Mg Tablet, 40 MG PO DAILY, TAB 02/03/23 Omeprazole (Omeprazole) 40 Mg Capsule.dr, 40 MG PO DAILY, CAP 02/03/23 [Probiotic +50] No Conflict Check, 1 CAP PO DAILY 02/03/23 Vitamin E (Dl,Tocopheryl Acet) (Vitamin E) 180 Mg (400 Unit) Capsule, 180 MG PO DAILY, CAP 02/03/23 Cholecalciferol (Vitamin D3) (Vitamin D3) 25 Mcg (1000 Unit) Capsule, 25 MCG PO DAILY, CAP 02/03/23 [[place]] No Conflict Check, 500 MG PO DAILY 02/03/23 [Collagen] No Conflict Check, 2.5 G PO DAILY 02/03/23 Butalb/Acetaminophen/Caffeine (Icpcov-Ldstapac-Ofyv 50-300-40) 50 Mg-300 Mg-40 Mg Capsule, 1 EACH PO [id number] PRN for HEADACHE, CAP 02/03/23 Docusate Sodium (Docusate Sodium) 100 Mg Tablet, 100 MG PO DAILY, TAB 02/08/19 Past Medical History Past Medical History: Hypertension, Other Additional Past Medical Hx: HX OF CROHN'S DISEASE, NON COMPLIANT WITH HTN MEDICATIONS Surgical History: Hysterectomy, Other Surgical History Other: COLON RESECTION Family History: Negative Social History: Negative History: Not Applicable RN Note Reviewed/Agreed w/PFSH: Yes Review of System Dictation Constitutional: Negative for fever,chills, and weight loss Eyes: Negative for injury, pain,redness, and discharge ENT: Negative for injury,pain or swelling Cardiovascular: Negative for chest pain, palpitations, and edema Respiratory: Negative for shortness of breath, cough, and wheezing, Abdomen/GI: Negative for abdominal pain, nausea, vomiting, diarrhea, and constipation Back: Negative for injury and pain : Negative for injury, bleeding and discharge MS/Extremity: Negative for injury and deformity Skin: Positive for rash on the anterior neck Neuro: Negative for headache, weakness, numbness, tingling, and seizure Psych: Negative for suicide ideation, homicidal ideation, and hallucinations Initial Vital Sign VS Vital Signs Date Time Temp Pulse Resp B/P (MAP) Pulse Ox O2 Delivery O2 Flow Rate FiO2 11/12/24 22:19 97.9 76 18 211/92 98 Room Air Physical Exam Dictation General: awake, alert, NAD Head/Face: Normocephalic, atraumatic Eyes: PERRL, EOMI, vision at baseline ENT: oral cavity clear, TMs clear, no signs of infection Neck: Trachea midline, supple, no nuchal rigidity Cardiovascular: RRR, normal S1/S2, No MRGs, no JVD Respiratory: CTAB, no respiratory distress, No rales or wheezes Abdomen: Soft, non-tender, non-distended, normal bowel sounds, no guarding or rebound. Skin: Warm, dry, normal turgor, erythematous excoriating raw rash under the chin and anteriorly along the folds. She also has 1 lesion in her left deltoid area which does look like a target lesion MS/Extremity: Pulses equal, no cyanosis, neurovascular intact, FROM Neuro: COAx4, GCS 15, strength 5/5, CN 2-12 intact, normal cerebellar exam, normal gait, Psych: Normal behavior, mood, and affect normal Extremities-trace edema without any palpable cords, Homans sign is negative Results (Laboratory/Radiology) Labs Reviewed?: Yes ED Course ED Course Orders Procedure Category Date Status Time Methylprednisolone PHA 11/12/24 Complete Succ 40mg (Solu-Medro 23:00 Diphenhydramine Hcl PHA 11/12/24 Complete (Benadryl Inj) 23:00 Current Medications Medications (Trade) Dose Ordered Sig/Nader Route PRN Reason Start Time Stop Time Status Last Admin Dose Admin Diphenhydramine HCl (BENAdryl INJ) 25 mg ONCE ONCE IM 11/12/24 23:00 11/12/24 23:01 DC Methylprednisolone Sodium Succinate (Solu-medROL 40MG) 60 mg ONCE ONCE IM 11/12/24 23:00 11/12/24 23:01 DC Vital Signs Date Time Temp Pulse Resp B/P (MAP) Pulse Ox O2 Delivery O2 Flow Rate FiO2 11/12/24 22:19 97.9 76 18 211/92 98 Room Air We will perform diagnostic labs, advanced imaging and administer medications according to the patient's complaint. Once the results are available, will review and personally interpreted the labs to rule out any acute life-th reatening emergency the trach require immediate intervention and treatment. I will then re-evaluate the patient after treatment and diagnostic exams have return to determine whether the patient requires any further testing, can safely be discharged home or need further admission to hospital for additional treatment and evaluation. 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 She verbalized full understanding Medical Decision Making MDM Differential diagnosis: Contact dermatitis, allergic reaction, extreme intestinal manifestations of Crohn's Rationale: Tests considered and ordered secondary to shared decision making include: Previous outside records reviewed: Old ER visits. Risk of complication and/or morbidity or mortality of patient management: None Medications-Per medication reconciliation Need for hospitalization: Patient does not meet criteria for hospitalization. Need for emergency major/minor surgery: No There are no social concerns with this patient. Prescription drug management Prescriptions will include symptomatic care Patient's prior external medical records from other ER visits were reviewed by me as indicated. Prior testing and results from previous visits were reviewed. Prior tests were taken into account with medical decision making and resource utilization, independent historian/historians were used to obtain complete medical history. I independently interpreted the test that were performed, results were reviewed by me and considered findings on radiology if ordered. Medical management and examination interpretation discussions were had by me with other qualified healthcare professionals as indicated for the patient's care. Problem List Problem List: (1) Pruritic erythematous rash (2) Rash of neck DX & DISP Disposition: Discharge Departure Impression: Primary Impression: Rash of neck Additional Impression: Pruritic erythematous rash Condition: Stable Scripts Hydroxyzine HCl (Atarax) 25 Mg Tab 1 CAP PO TID for itching for 10 Days, #30 CAP 0 Refills Prov: ROMIE FELICIANO MD 11/12/24 Prednisone (Prednisone) 20 Mg Tablet 1 TAB PO BID for 5 Days, #10 TAB 0 Refills Prov: ROMIE FELICIANO MD 11/12/24 Additional Instructions: Patient and the caregiver have been informed of all the diagnostic tests and the imaging conducted during the today's visit to the emergency room and has verbalized understanding of the results I have personally reviewed and interpreted all diagnostic exams performed here in the ER today as well as the vital signs documented by the nursing staff. The patient is now being discharged to home and should follow up with the primary care physician or the specialist as directed by the ER staff. Follow-up with primary care provider in 1 to 2 days. Take medications as directed here in the emergency room. Okay to continue home medications unless otherwise discussed during your visit in the emergency room today. Return to your nearest emergency room if symptoms worsen or if there is no improvement. Call 911 if you need immediate assistance. Take Tylenol or Motrin [id number] as needed and if no contraindications are present. Increase oral hydration. A wound culture or urine culture was ordered here in the emergency room department please follow-up with primary care provider and advise them to get repeat ports from our facility. If you had any [place] wrap/splints that were applied here, please do not remove them until you see your primary care or specialty. Referrals: TIM DISLA DO (PCP) ROMIE FELICIANO MD Nov 12, 2024 22:36
[2024-11-12] MEDS ORDERED: HYD25 PO (22:54)
[2024-11-12] MEDS ORDERED: PRED20TA3 PO (22:54)
[2024-11-12] MEDS: Solu-medROL 40MG VIAL IM ONE (23:05)
[2024-11-12 23:14] VITALS: BP 171/82; PULSE 82; RESP 16; O2SAT 98
== END 2024-11-12 23:54 | disposition home or self-care (01) ==
LOC: EDH 22:18
DX: R21 Rash and other nonspecific skin eruption (principal); L29.9 Pruritus, unspecified; I10 Essential (primary) hypertension; Z79.52 Long term (current) use of systemic steroids; Z79.899 Other long term (current) drug therapy; Z90.710 Acquired absence of both cervix and uterus
CPT/HCPCS: 99284; 96372 ×2; J2919; J1200

== ENCOUNTER → 2025-01-03 | Outpatient (CLI) | payer MEDICAID ==
[~2025-01-03] MED LIST changes: +HYD25 PO; +PRED20TA3 PO
--- NOTE | 2025-01-04 05:55 | HMCIMG ---
EXAM: CR Cervical spine, 3 views. CLINICAL HISTORY: Pain. COMPARISON: None provided. FINDINGS: Straightening of cervical spine is noted. Osteophytic lipping of articular margins noted. C5-C6 and C6-C7 intervertebral disc spaces are reduced. No subluxation with flexion or extension. Normal vertebral body heights. No acute fracture. The prevertebral soft tissues are within normal limits. The included lungs are clear. IMPRESSION: No acute bony changes. Straightening of cervical spine is noted which may be due to muscle spasm. Osteophytic lipping of articular margins noted. C5-C6 and C6-C7 intervertebral disc spaces are reduced. No subluxation with flexion or extension. /[place]
== END | disposition home or self-care (01) ==
LOC: RAH 11:55
PROVIDERS: ATTEND Physical Medicine & Rehabilitation
DX: M50.122 Cervical disc disorder at C5-C6 level with radiculopathy (principal); M50.123 Cervical disc disorder at C6-C7 level with radiculopathy; M25.78 Osteophyte, vertebrae
CPT/HCPCS: 72050

== ENCOUNTER 2025-03-18 13:10 | Emergency (ER) | payer MEDICAID ==
[~2025-03-18] VITALS: Ht 154.9 cm; Wt 70.3 kg
[2025-03-18] MEDS ORDERED: CLIN-141 PO (13:25)
[2025-03-18] MEDS ORDERED: KETO10TA2 PO (13:25)
--- NOTE | 2025-03-18 13:26 | ERN ---
ED Note History of Present Illness Stated Complaint: SWELLING OF THE FACE Chief Complaint: Face Pain/Problem Time Seen by MD: 13:16 Dictation: PATIENT IS A 64-YEAR-OLD FEMALE HERE WITH MILD LEFT FACIAL PAIN PROXIMAL TOOTH 6. SHE HAS A TOOTH FRACTURE THAT SHE HAS HAD FOR SEVERAL WEEKS, WAS SEEN BY HER ORAL SURGEON AND PRESCRIBED ANTIBIOTICS OUT SHE RAN OUT OF THE ANTIBIOTICS BEFORE THE SURGERY COULD BE PERFORMED. IT IS RESCHEDULED FOR WEDNESDAY. NO FEVER NO CHILLS. NO HISTORY OF DIABETES Allergies: Coded Allergies: No Known Drug Allergies (Unverified Allergy, Unknown, 11/27/13) Home Meds Active Scripts Hydroxyzine HCl (Atarax) 25 Mg Tab, 1 CAP PO TID for itching for 10 Days, #30 CAP 0 Refills Prov:ROMIE FELICIANO MD 11/12/24 Prednisone (Prednisone) 20 Mg Tablet, 1 TAB PO BID for 5 Days, #10 TAB 0 Refills Prov:ROMIE FELICIANO MD 11/12/24 Benzonatate (Benzonatate) 200 Mg Capsule, 200 MG PO BID PRN for cough for 10 Days, #20 CAP Prov:ERNIE GARVEY MD 09/23/24 Cephalexin Monohydrate (Keflex) 500 Mg Cap, 500 MG PO QID for 7 Days, #28 CAP Prov:ERNIE GARVEY MD 09/23/24 Ibuprofen (Ibuprofen 800 mg Tab) 800 Mg Tab, 800 MG PO Q8H PRN for fever or pain, #20 TAB 0 Refills Prov:SPENSER AYALA MD 10/04/23 Reported Medications Cetirizine HCl (Cetirizine HCl) 10 Mg Tablet, 10 MG PO DAILY, TAB 02/04/23 Ondansetron (Ondansetron Odt) 4 Mg Tab.rapdis, 4 MG PO AD, TAB 02/04/23 Simvastatin (Simvastatin) 40 Mg Tablet, 40 MG PO HS, TAB 02/03/23 Famotidine (Famotidine) 40 Mg Tablet, 40 MG PO DAILY, TAB 02/03/23 Omeprazole (Omeprazole) 40 Mg Capsule.dr, 40 MG PO DAILY, CAP 02/03/23 [Probiotic +50] No Conflict Check, 1 CAP PO DAILY 02/03/23 Vitamin E (Dl,Tocopheryl Acet) (Vitamin E) 180 Mg (400 Unit) Capsule, 180 MG PO DAILY, CAP 02/03/23 Cholecalciferol (Vitamin D3) (Vitamin D3) 25 Mcg (1000 Unit) Capsule, 25 MCG PO DAILY, CAP 02/03/23 [[place]] No Conflict Check, 500 MG PO DAILY 02/03/23 [Collagen] No Conflict Check, 2.5 G PO DAILY 02/03/23 Butalb/Acetaminophen/Caffeine (Nmgjqe-Vwuzzslg-Okdp 50-300-40) 50 Mg-300 Mg-40 Mg Capsule, 1 EACH PO [id number] PRN for HEADACHE, CAP 02/03/23 Docusate Sodium (Docusate Sodium) 100 Mg Tablet, 100 MG PO DAILY, TAB 02/08/19 Past Medical History Past Medical History: High Cholesterol Additional Past Medical Hx: CROHNS DISEASE Surgical History: Other Surgical History Other: COLON RESECTION Family History: Negative Social History: Negative History: Not Applicable RN Note Reviewed/Agreed w/PFSH: Yes Review of System Dictation CONSTITUTIONAL: NEGATIVE EXCEPT FOR HPI HEAD/FACE: NEGATIVE EXCEPT FOR HPI EENT: NEGATIVE EXCEPT FOR HPI DENTAL FRACTURE WITH MILD FACIAL SWELLING RESPIRATORY: NEGATIVE EXCEPT FOR HPI GASTROINTESTINAL/ABDOMINAL: NEGATIVE EXCEPT FOR HPI GENITOURINARY: NEGATIVE EXCEPT FOR HPI MUSCULOSKELETAL: NEGATIVE EXCEPT FOR HPI INTEGUMENTARY: NEGATIVE EXCEPT FOR HPI NEUROLOGICAL/PSYCH: NEGATIVE EXCEPT FOR HPI HEMATOLOGIC/LYMPHATIC: NEGATIVE EXCEPT FOR HPI ALL SYSTEMS NEGATIVE, EXCEPT NOTED ABOVE. 13 POINT REVIEW OF SYSTEMS ASSESSED AND ALL NEGATIVE EXCEPT FOR ABOVE. Initial Vital Sign VS Vital Signs Date Time Temp Pulse Resp B/P (MAP) Pulse Ox O2 Delivery O2 Flow Rate FiO2 03/18/25 13:11 98.1 82 20 151/90 96 Room Air 0 Physical Exam Dictation VITAL SIGNS REVIEWED GENERAL APPEARANCE: ALERT, ORIENTED X 3, NO ACUTE DISTRESS, WELL DEVELOPED, NOURISHED. HEAD AND FACE: NON-TRAUMATIC. EYES: PERRL, PINK CONJUNCTIVAS, EYELID NO TRAUMA, ANTERIOR CHAMBER WITH ARCUS SENILIS. EARS: PINNAS INTACT AND NO SIGNS OF TRAUMA OR ERYTHEMA EAR CANALS CLEAR AND NO DISCHARGE TM NO ERYTHEMA NOSE: NO DISCHARGE, NO BLEEDING. OROPHARYNX: MOUTH NORMAL, TONGUE PINK, DENTAL FRACTURE TOOTH 6., GINGIVAL ERYTHEMA. FACIAL SWELLING PROXIMAL TOOTH PHARYNX CLEAR,NO ERYTHEMA, TONSILS NO EXUDATES, NO ABSCESSES NOTED, MUCOUS MEMBRANE MOIST NECK: SUPPLE, NON-TENDER, NO THYROMEGALY, NO MASSES, NO JVD, NO BRUITS BREAST:DEFERRED CHEST:NO TENDERNESS, NO CREPITUS, NO PARADOXICAL MOVEMENT, NO RETRACTIONS LUNGS:CLEAR, WELL-VENTILATED, SYMMETRIC, NO RALES, NO WHEEZING, NO RHONCHI, NO STRIDOR, GOOD BREATH SOUNDS BILATERALLY HEART: REGULAR RATE, REGULAR RHYTHM, NO MURMUR, NO GALLOPS VASCULAR: NO PERIPHERAL EDEMA, ABDOMEN: SOFT, POSITIVE BOWEL SOUNDS, NONDISTENDED, NO GUARDING, NONTENDER, NO REBOUND, NO MASSES NO HEPATOMEGALY, NO SPLENOMEGALY, NO SANABRIA'S SIGN, NO HERNIAS. RECTAL: DEFERRED GENITAL: DEFERRED NEUROLOGICAL: NORMAL SPEECH, MOTOR FUNCTION INTACT, SENSORY FUNCTION INTACT MUSCULOSKELETAL: NECK NONTENDER, FULL RANGE OF MOTION, BACK NONTENDER, FULL RANGE OF MOTION, EXTREMITIES: NONTENDER, FULL RANGE OF MOTION SKIN: COLOR PINK, DRY, NO TURGOR, NO RASH, NO LACERATIONS, NO ABRASIONS, NO CONTUSIONS. LYMPHATIC: DEFERRED Results (Laboratory/Radiology) Labs Reviewed?: Yes ED Course ED Course Orders Procedure Category Date Status Time Ketorolac 60mg/2ml PHA 03/18/25 Verified (Toradol 60mg/2ml) 13:30 Clindamycin 150mg Cap PHA 03/18/25 Verified (Cleocin 150mg Cap 13:30 Vital Signs Date Time Temp Pulse Resp B/P (MAP) Pulse Ox O2 Delivery O2 Flow Rate FiO2 03/18/25 13:11 98.1 82 20 151/90 96 Room Air 0 1320/NO LABS OR IMAGING INDICATED. PATIENT WILL BE TREATED EMPIRICALLY FOR A TOOTH FRACTURE WITH CARIES INTO THE PULP. Medical Decision Making MDM MEDICAL DECISION-MAKING BASED ON EMPIRIC TREATMENT FOR DENTAL CARIES INTO THE PULP. SHE WAS GIVEN CLINDAMYCIN 600 MG P.O. WITH TORADOL SENT HOME WITH SAME AND TOLD TO SEE HER ORAL SURGEON ON WEDNESDAY. DX & DISP Disposition: Discharge Departure Impression: Primary Impression: Tooth fracture Additional Impression: Dental caries into pulp Condition: Stable Scripts Ketorolac Tromethamine (Ketorolac Tromethamine) 10 Mg Tablet 1 TAB PO Q6HPRN PRN for pain for 5 Days, #20 TAB 0 Refills Prov: VALENTIN HIRSCH LEAD BI DEVELOPER 03/18/25 Clindamycin HCl (Clindamycin HCl) 300 Mg Capsule 1 CAP PO QID for 10 Days, #40 CAP 0 Refills Prov: VALENTIN HIRSCH 03/18/25 Additional Instructions: FOLLOW-UP WITH PRIMARY CARE PROVIDER IN 1 TO 2 DAYS. TAKE MEDICATIONS DIRECTED HERE IN THE EMERGENCY ROOM. OKAY TO CONTINUE HOME MEDICATIONS UNLESS OTHERWISE DISCUSSED DURING YOUR VISIT IN THE EMERGENCY ROOM TODAY. RETURN TO YOUR NEAREST EMERGENCY ROOM IF SYMPTOMS WORSEN OR IF THERE IS NO IMPROVEMENT. CALL 911 IF YOU NEED IMMEDIATE ASSISTANCE. TAKE TYLENOL OR MOTRIN [id number] NEEDED AND IF NO CONTRAINDICATIONS ARE PRESENT. INCREASE ORAL HYDRATION. A WOUND CULTURE OR URINE CULTURE WAS ORDERED HERE IN THE EMERGENCY ROOM DEPARTMENT PLEASE FOLLOW-UP WITH PRIMARY CARE PROVIDER AND ADVISE THEM TO GET REPEAT PORTS FROM OUR FACILITY. IF YOU HAD ANY DEBORA WRAP/SPLINTS THAT WERE APPLIED HERE, PLEASE DO NOT REMOVE THEM UNTIL YOU SEE YOUR PRIMARY CARE OR SPECIALTY. TAKE CLINDAMYCIN DIRECTED UNTIL GONE. TAKE KETOROLAC EVERY 6 HOURS WITH FOOD NEEDED FOR PAIN. SEE YOUR DENTIST ON WEDNESDAY FOR FOLLOW UP AND MANAGEMENT Referrals: TIM DISLA DO (PCP) Time of Disposition: 13:25 I have reviewed the case, and I agree with, Diagnosis and Plan VALENTIN HIRSCH Mar 18, 2025 13:26
[2025-03-18 13:31] VITALS: BP 151/90; PULSE 82; RESP 20; TEMP 98.1; O2SAT 96
[2025-03-18] MEDS: CLINDAMYCIN 150 MG CAP PO ONE (13:40)
== END 2025-03-18 14:09 | disposition home or self-care (01) ==
LOC: EDH 13:10
DX: S02.5XXA Fracture of tooth (traumatic), initial encounter for closed fracture (principal); K02.9 Dental caries, unspecified; E78.00 Pure hypercholesterolemia, unspecified; Z79.899 Other long term (current) drug therapy; Z79.52 Long term (current) use of systemic steroids; X58.XXXA Exposure to other specified factors, initial encounter; Y93.89 Activity, other specified; Y92.89 Other specified places as the place of occurrence of the external cause; Y99.8 Other external cause status
CPT/HCPCS: 99283; 96372; J1885